=== PATIENT | male | born 1995 | race Caucasian/White ===

== ENCOUNTER 2018-11-25 02:41 | Emergency (ER) | payer SELFPAY ==
[~2018-11-25] VITALS: Ht 190.5 cm; Wt 75.0 kg
[2018-11-25 02:45] VITALS: TEMP 97.7
[2018-11-25] MEDS ORDERED: [UNRECOGNIZED DRUG - OTHER] SL (04:13)
[2018-11-25 08:42] VITALS: BP 104/61; PULSE 74
== END 2018-11-25 09:08 | disposition home or self-care (01) ==
LOC: COL.ER 02:41
DX: S00.212A Abrasion of left eyelid and periocular area, initial encounter (principal); F10.129 Alcohol abuse with intoxication, unspecified; F17.210 Nicotine dependence, cigarettes, uncomplicated; W19.XXXA Unspecified fall, initial encounter
CPT/HCPCS: J2405